=== PATIENT | male | born 1970 | race Caucasian/White ===

== ENCOUNTER 2025-05-07 16:04 | Emergency (ER) | payer OTHER, SELFPAY ==
[2025-05-07 16:15] VITALS: BP 133/75; PULSE 63; RESP 18; TEMP 36.7; O2SAT 98
--- NOTE | 2025-05-07 16:28 | ED.URI ---
HPI - URI/Sore Throat General Chief Complaint: Upper Respiratory Infection Stated Complaint: headahce,fatigue,conjested,dry mouth Time Seen by Provider: 05/07/25 16:28 Source: patient Mode of arrival: ambulatory Limitations: no limitations History of Present Illness HPI Narrative: 54-year-old male presents with complaint fatigue, congestion, mild cough, headache for 3 days. Denies nausea vomiting diarrhea. Patient states fatigue is his worse symptoms. Taking [id number]-[id number] Mucinex to treat symptoms. All systems reviewed and negative except as noted above. Related Data Home Medications ?Medication ?Instructions ?Recorded ?Confirmed ?Last Taken ?Type No Home Medications 05/07/25 05/07/25 Unknown History Allergies Allergy/AdvReac Type Severity Reaction Status Date / Time Penicillins AdvReac Mild Unknown Verified 05/07/25 16:19 [facility] Past Medical History Medical History (Updated 05/07/25 @ 16:38 by Namita Corley NP) Post-nasal drip Diverticulosis Xanthelasma of left lower eyelid Excessive cerumen in both ear canals Encounter to establish care Family History Family History (Reviewed 08/30/24 @ 08:57 by Hal Barry [facility]) Grandparent Brain aneurysm Father Acute myocardial infarction Social History Social History (Reviewed 08/30/24 @ 08:57 by Hal Barry [facility]) Smoking status: Never smoker Alcohol intake: current Drinks per week: 6 Substance use: never Substance use type: does not use Comments At time of signature, agree with nursing past medical, surgical, social and family history. There is no relevant family history pertinent to the presenting complaint. Exam Narrative: GENERAL: This is a well-nourished, well-developed patient, ill-appearing but in no acute distress HEAD: normocephalic, atraumatic. EYES: PERRL. sclera and conjunctiva erythematous bilateral. Vision is grossly intact. EARS: External ears normal, auditory canals clear and without drainage, TMs normal without perforation. Hearing grossly intact. NOSE: External nose normal with clear nasal drainage THROAT: Mucous membranes moist, posterior pharynx clear. NECK: Neck supple, non-tender without lymphadenopathy, masses or thyromegaly. CARDIOVASCULAR: Regular rate and rhythm without murmurs, gallops, or rubs. RESPIRATORY: Clear to auscultation. Breath sounds equal bilaterally. No wheezes, rales, or rhonchi. SKIN: warm, Dry, intact with no suspicious lesions or rash, good texture and turgor. NEURO: awake, alert, and oriented to person, place and time. There were no obvious focal neurologic abnormalities. EXTREMITIES: No joint tenderness, effusion, or edema noted. Course Course Level of Care: Express Care Visit Vital Signs Vital signs: Vital Signs Temperature 36.7 C 05/07/25 16:15 Pulse Rate 63 05/07/25 16:15 Respiratory Rate 18 05/07/25 16:15 Blood Pressure 133/75 05/07/25 16:15 Pulse Oximetry 98 05/07/25 16:15 Oxygen Delivery Room Air 05/07/25 16:15 Temperature 36.7 C 05/07/25 16:15 Pulse Rate 63 05/07/25 16:15 Respiratory Rate 18 05/07/25 16:15 Blood Pressure 133/75 05/07/25 16:15 Pulse Oximetry 98 05/07/25 16:15 Oxygen Delivery Room Air 05/07/25 16:15 reviewed MDM - URI/Sore Throat MDM Narrative Medical decision making narrative: patient positive for COVID-19, influenza B. Discussed results with patient. Recommend etve-eir-lhpzhng medications to treat viral symptoms. Patient is out of therapeutic window for Tamiflu. Lungs clear to auscultation, no respiratory distress. Differential Diagnosis Differential diagnosis: Likely upper respiratory infection, sinusitis, viral infection and influenza Lab Data Labs: Lab Results 05/07/25 05/07/25 Range/Units 16:33 16:37 POC Influenza A Ag Negative (Negative) POC Influenza B Ag Positive (Negative) POC SARS CoV-2 Ag Positive (Negative) Discharge Plan Discharge Clinical Impression: COVID-19, Influenza B Patient Disposition: Home Condition: Stable Instructions: Influenza (ED), COVID-19 (Coronavirus Disease 2019) (ED) Additional Instructions: your COVID and influenza test was positive today. Influenza and COVID or viruses and symptoms may last 10-14 days. Taking xygz-mih-educxik medication to treat her symptoms such as DayQuil NyQuil cold and flu. Drink at least 64 oz water a day. Follow-up your primary care physician if symptoms are not improving. Patient Language: Azerbaijani Prescriptions: No Action No Home Medications Follow-up/Referrals: UNKNOWN,DOCTOR [Primary Care Provider] Time of Disposition: 16:38
[2025-05-07 16:34] LABS: EDCOVIDSCREEN Positive (Negative)
[2025-05-07 16:39] LABS: EDINFLUASCREEN Negative (Negative); EDINFLUBSCREEN Positive (Negative)
== END 2025-05-07 16:44 | disposition home or self-care (01) ==
PROVIDERS: Emergency Provider Nurse Practitioner Family
DX: U07.1 COVID-19 (principal); J10.1 Influenza due to other identified influenza virus with other respiratory manifestations
CPT/HCPCS: 87426; 87804; 99212; G0463